=== PATIENT | male | born 1955 | race Caucasian/White ===

== ENCOUNTER 2018-05-26 09:02 | Observation (INO) | payer BC ==
--- NOTE | 2018-05-26 09:51 | ER Document Report ---
ED General - General Chief Complaint: Palpitations Stated Complaint: CHEST PAIN Time Seen by Provider: 05/26/18 09:34 TRAVEL OUTSIDE OF THE [place] IN LAST 30 DAYS: No - HPI Notes: Patient is a 63-year-old male that presents to the emergency department for chief complaint of nausea, palpitations and lightheadedness. Patient reports over the last 2 weeks he has had intermittent episodes of palpitations nausea and lightheadedness. Today he reports a few episodes with these symptoms. He states lying down improves his lightheadedness. Today he felt the palpitations beginning and began to get nauseous and laid down in his truck. He was unable to get out of his truck and ended up talking his horn so a neighbor found him and could called EMS. Patient states he has been seen by his primary care doctor for these symptoms and had a recent change to his blood pressure medications. He had an increase to his losartan and his metoprolol was changed to amlodipine. He reports no change in his symptoms since having the medications changed. He also reports yesterday he had results of a carotid ultrasound that were normal. He has had a stress test and cardiac echo in the last year that were also normal. He denies any history of dysrhythmia or cardiac disease in the past. He denied any syncopal event. Currently he states he is feeling mildly nauseated but the palpitations and lightheadedness have resolved. Past Medical History: Hypertension Past Surgical History: Rhinoplasty Social History: Denies drugs alcohol and tobacco Family History: Reviewed and noncontributory for presenting illness Allergies: Reviewed, see documented allergy list. REVIEW OF SYSTEMS: CONSTITUTIONAL : No fever No chills No diaphoresis No recent illness EENT: No vision changes No congestion No sore throat CARDIOVASCULAR: No chest pain palpitations RESPIRATORY: No shortness of breath No cough No difficulty breathing GASTROINTESTINAL: No abdominal pain nausea No vomiting No diarrhea GENITOURINARY: No dysuria No hematuria No difficulty urinating MUSCULOSKELETAL: No back pain No leg pain No arm pain SKIN: No rashes No lesions LYMPHATIC: No swollen, enlarged glands. NEUROLOGICAL: lightheadedness No headache No weakness No paresthesias PSYCHIATRIC: No anxiety No depression PHYSICAL EXAMINATION: Vital signs reviewed, nursing noted reviewed. GENERAL: Well-appearing, well-nourished and in no acute distress. HEAD: Atraumatic, normocephalic. EYES: Eyes appear normal, extraocular movements intact, sclera anicteric, conjunctiva are normal. ENT: nares patent, oropharynx clear without exudates. Moist mucous membranes. NECK: Normal range of motion, supple without lymphadenopathy LUNGS: Breath sounds clear to auscultation bilaterally and equal. No wheezes rales or rhonchi. HEART: Regular rate and rhythm without murmurs. +2/4 bilateral radial pulses ABDOMEN: Soft, nontender, normoactive bowel sounds. No rebound, guarding, or rigidity. No masses appreciated. EXTREMITIES: Nontender, good range of motion, no pitting or edema. NEUROLOGICAL: No focal neurological deficits. Moves all extremities spontaneously Motor and sensory grossly intact on exam. PSYCH: Normal mood, normal affect. SKIN: Warm, Dry, normal turgor, no rashes or lesions noted on exposed skin - Related Data Allergies/Adverse Reactions: No Known Allergies Allergy (Verified 05/26/18 09:08) Past Medical History - Social History Smoking Status: Never Smoker Family History: Reviewed & Not Pertinent Review of Systems - Review of Systems Notes: Dictated Physical Exam - Vital signs Vitals: Temp Pulse Resp BP Pulse Ox 97.6 F 90 18 159/89 H 96 05/26/18 09:27 05/26/18 09:27 05/26/18 09:27 05/26/18 09:27 05/26/18 09:27 - Notes Notes: Dictated Course - Re-evaluation Re-evalutation: 05/26/18 09:51 Vitals reviewed. Nursing notes reviewed. 05/26/18 12:02 Patient reevaluated after IV hydration he is orthostatic negative on blood pressure and heart rate from lying to sitting however when patient sits up he becomes very symptomatic and is unable to stand. He reports severe lightheadedness nausea and palpitations. He has had no telemetry events or dysrhythmia while in the emergency room. His workup is unremarkable including normal electrolytes and renal function. His troponin is negative. D-dimer is normal and PE not currently suspected. Chest x-ray showed no pneumothorax or other acute process. At this time he is still significantly symptomatic. I will continue hydration and admit him to the hospital for further monitoring. Case discussed with Dr. Whittaker who has accepted admission. Patient is in agreement with this plan and stable at time of admission. Laboratory 05/26/18 05/26/18 05/26/18 09:55 09:55 09:55 WBC 10.7 H RBC 4.64 Hgb 14.3 Hct 40.8 MCV 88 MCH 30.9 MCHC 35.2 RDW 13.1 Plt Count 204 Seg Neutrophils % 89.2 H Lymphocytes % 6.8 L Monocytes % 3.6 Eosinophils % 0.2 Basophils % 0.2 Absolute Neutrophils 9.5 H Absolute Lymphocytes 0.7 Absolute Monocytes 0.4 Absolute Eosinophils 0.0 Absolute Basophils 0.0 D-Dimer Sodium 141.3 Potassium 3.7 Chloride 101 Carbon Dioxide 27 Anion Gap 13 BUN 17 Creatinine 0.92 Est GFR ( Amer) > 60 Est GFR (Non-Af Amer) > 60 Glucose 139 H Calcium 9.0 Total Bilirubin 0.8 Direct Bilirubin 0.2 Neonat Total Bilirubin Not Reportable Neonat Direct Bilirubin Not Reportable Neonat Indirect Bili Not Reportable AST 16 L ALT 17 L Alkaline Phosphatase 49 Troponin I < 0.012 Total Protein 6.8 Albumin 4.1 05/26/18 09:55 WBC RBC Hgb Hct MCV MCH MCHC RDW Plt Count Seg Neutrophils % Lymphocytes % Monocytes % Eosinophils % Basophils % Absolute Neutrophils Absolute Lymphocytes Absolute Monocytes Absolute Eosinophils Absolute Basophils D-Dimer < 0.27 Sodium Potassium Chloride Carbon Dioxide Anion Gap BUN Creatinine Est GFR ( Amer) Est GFR (Non-Af Amer) Glucose Calcium Total Bilirubin Direct Bilirubin Neonat Total Bilirubin Neonat Direct Bilirubin Neonat Indirect Bili AST ALT Alkaline Phosphatase Troponin I Total Protein Albumin Chest X-Ray 05/26/18 09:46 IMPRESSION: NO ACUTE RADIOGRAPHIC FINDING IN THE CHEST. - Vital Signs Vital signs: Temp Pulse Resp BP Pulse Ox 97.6 F 94 20 138/78 H 97 05/26/18 09:27 05/26/18 10:53 05/26/18 10:48 05/26/18 10:53 05/26/18 10:48 - Laboratory Result Diagrams: 05/26/18 09:55 05/26/18 09:55 Laboratory results interpreted by me: 05/26/18 05/26/18 09:55 09:55 WBC 10.7 H Seg Neutrophils % 89.2 H Lymphocytes % 6.8 L Absolute Neutrophils 9.5 H Glucose 139 H AST 16 L ALT 17 L Discharge - Discharge Clinical Impression: Near syncope, Palpitations Vomiting Qualifiers: Vomiting type: unspecified Vomiting Intractability: non-intractable Nausea presence: with nausea Qualified Code(s): R11.2 - Nausea with vomiting, unspecified Condition: Stable Disposition: ADMITTED OBSERVATION Admitting Provider: Hospitalist Unit Admitted: Telemetry
[2018-05-26 10:07] LABS: ABSOLUTE LYMPHOCYTES (AUTO) 0.7 10^3/uL (0.5-4.7); ABSOLUTE MONOCYTES (AUTO) 0.4 10^3/uL (0.1-1.4); ABSOLUTE NEUT (AUTO) 9.5 10^3/uL (1.7-8.2); BASOPHILS % (AUTO) 0.2 % (0-2); EOSINOPHILS % (AUTO) 0.2 % (0-6); HEMATOCRIT 40.8 % (37.9-51.0); HEMOGLOBIN 14.3 g/dL (13.5-17.0); LYMPHOCYTES % (AUTO) 6.8 % (13-45); MEAN CORPUSCULAR HEMOGLOBIN 30.9 pg (27.0-33.4); MEAN CORPUSCULAR HGB CONC 35.2 g/dL (32.0-36.0); MEAN CORPUSCULAR VOLUME 88 fl (80-97); MONOCYTES % (AUTO) 3.6 % (3-13); PLATELET COUNT 204 10^3/uL (150-450); RED BLOOD COUNT 4.64 10^6/uL (4.35-5.55); RED CELL DISTRIBUTION WIDTH 13.1 % (11.5-14.0); SEGMENTED NEUTROPHILS % (AUTO) 89.2 % (42-78); TOTAL CELLS COUNTED % (AUTO) 100 %; WHITE BLOOD COUNT 10.7 10^3/uL (4.0-10.5)
[2018-05-26 10:31] LABS: ALANINE AMINOTRANSFERASE 17 U/L (21-72); ALBUMIN 4.1 g/dL (3.5-5.0); ALKALINE PHOSPHATASE 49 U/L (38-126); ANION GAP 13 (5-19); ASPARTATE AMINO TRANSFERASE 16 U/L (17-59); BILIRUBIN,DIRECT 0.2 mg/dL (0.0-0.4); BILIRUBIN,TOTAL 0.8 mg/dL (0.2-1.3); BLOOD UREA NITROGEN 17 mg/dL (7-20); CARBON DIOXIDE 27 mmol/L (22-30); CHLORIDE 101 mmol/L (98-107); GLUCOSE 139 mg/dL (75-110); POTASSIUM 3.7 mmol/L (3.6-5.0); SODIUM 141.3 mmol/L (137-145); TOTAL PROTEIN 6.8 g/dL (6.3-8.2)
[2018-05-26] MEDS ORDERED: PANTOPRAZOLE SODIUM 40 MG VIAL IV ONE (10:33)
--- NOTE | 2018-05-26 11:04 | RADIOLOGY REPORT (SQ) ---
EXAM DESCRIPTION: CHEST SINGLE VIEW COMPLETED DATE/TIME: 05/26/2018 10:29 am REASON FOR STUDY: chest pain COMPARISON: None. EXAM PARAMETERS: NUMBER OF VIEWS: One view. TECHNIQUE: Single frontal radiographic view of the chest acquired. RADIATION DOSE: NA LIMITATIONS: None. FINDINGS: LUNGS AND PLEURA: No opacities, masses or pneumothorax. No pleural effusion. MEDIASTINUM AND HILAR STRUCTURES: No masses. Contour normal. HEART AND VASCULAR STRUCTURES: Heart normal in size. Normal vasculature. BONES: No acute findings. HARDWARE: None in the chest. OTHER: No other significant finding. IMPRESSION: NO ACUTE RADIOGRAPHIC FINDING IN THE CHEST. TECHNICAL DOCUMENTATION: JOB ID: [id number] [employer]- All Rights Reserved Reading location - IP/workstation name: [facility]END[email or web address]
[2018-05-26] MEDS ORDERED: ONDANSETRON HCL INJ/PF 4 MG/2 ML SDV IV PRN ×2 (12:44→15:30)
[2018-05-26] MEDS: RINGERS SOLUTION,LACTATED 1,000 ML IV PRN ×2 (13:55→22:49)
--- NOTE | 2018-05-26 16:26 | PDOC H&P ---
History of Present Illness Admission Date/PCP: 05/26/18 12:16 Patient complains of: Dizziness and palpitations History of Present Illness: DAVE BRENNAN is a 63 year old male who presents to the emergency room due to acute onset of dizziness lightheadedness and palpitations associated with nausea and vomiting started earlier today at work. Patient went out to his car to sit in his seat and laid down which normally relieves his symptoms but after 15 minutes he did not improve and he was so weak that he could not get up so he had to honk the whole and have 1 of his coworkers to come help him out. 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 He said the firefighters checked his pressure was elevated with systolic pressure at 199. He has history of hypertension and takes losartan and metoprolol which was switch earlier this week to amlodipine by his primary care physician due to recurrent similar symptoms which started originally last week. Had carotid ultrasound done outpatient which was reportedly negative. Currently he is hemodynamically stable with normal vital signs and he is laying in bed comfortable. Past Medical History Cardiac Medical History: Reports: Hypertension Social History Smoking Status: Never Smoker Family History Family History: Malignancy Parental Family History Reviewed: Yes Children Family History Reviewed: Yes Sibling(s) Family History Reviewed.: Yes Medication/Allergy Home Medications: Ibuprofen [Motrin 800 mg Tablet] 800 mg PO Q8HP PRN 05/26/18 Losartan Potassium [Cozaar 100 mg Tablet] 100 mg PO DAILY 05/26/18 Metoprolol Succinate [Toprol Xl 50 mg Tab.sr] 50 mg PO DAILY 05/26/18 Omeprazole 40 mg PO ACBRKFST 05/26/18 Allergies/Adverse Reactions: No Known Allergies Allergy (Verified 05/26/18 09:08) Review of Systems All systems: reviewed and no additional remarkable complaints except as stated Physical Exam Vital Signs: Temp Pulse Resp BP Pulse Ox 97.6 F 94 20 135/78 H 96 05/26/18 09:27 05/26/18 10:53 05/26/18 15:01 05/26/18 15:00 05/26/18 15:01 General appearance: PRESENT: no acute distress, cooperative Head exam: PRESENT: atraumatic, normocephalic Eye exam: PRESENT: EOMI, PERRLA. ABSENT: conjunctival injection Ear exam: ABSENT: bleeding, drainage Mouth exam: PRESENT: neck supple, tongue midline Neck exam: ABSENT: meningismus, tenderness, tracheostomy Respiratory exam: PRESENT: accessory muscle use, clear to auscultation lisa Cardiovascular exam: PRESENT: RRR. ABSENT: diastolic murmur, systolic murmur Pulses: PRESENT: normal radial pulses GI/Abdominal exam: PRESENT: normal bowel sounds, soft. ABSENT: ascites, distended, tenderness Rectal exam: PRESENT: deferred Extremities exam: ABSENT: pedal edema Musculoskeletal exam: PRESENT: normal inspection. ABSENT: deformity, tenderness Neurological exam: PRESENT: alert, altered, awake, oriented to person, oriented to place, oriented to time, oriented to situation Psychiatric exam: PRESENT: agitated, anxious Skin exam: PRESENT: dry, normal color. ABSENT: abrasion, cyanosis, mottled Results Laboratory Results: 05/26/18 13:45 Troponin I < 0.012 Impressions: Chest X-Ray 05/26/18 09:46 IMPRESSION: NO ACUTE RADIOGRAPHIC FINDING IN THE CHEST. Assessment & Plan - Diagnosis (1) Near syncope Is this a current diagnosis for this admission?: Yes Plan: Admit patient for observation Continue telemetry monitoring Consult cardiology and check echocardiogram Check serial troponins and serial EKGs Consult physical therapy and check orthostatic vital signs Carotid ultrasound was done outpatient last week and was negative (2) Palpitations Is this a current diagnosis for this admission?: Yes Plan: Check TSH, echocardiogram, telemetry (3) Hypertension Is this a current diagnosis for this admission?: Yes Plan: Continue amlodipine and losartan Monitor blood pressure (4) Vomiting Qualifiers: Vomiting type: unspecified Vomiting Intractability: non-intractable Nausea presence: with nausea Qualified Code(s): R11.2 - Nausea with vomiting, unspecified Is this a current diagnosis for this admission?: Yes Plan: Zofran as needed
[2018-05-26] MEDS ORDERED: ACETAMINOPHEN 325 MG TABLET PO PRN (20:54)
[2018-05-26] MEDS ORDERED: MAG HYDROX/AL HYDROX/SIMETH SUSP 30 ML UDCUP PO PRN (20:55)
[2018-05-27] MEDS ORDERED: LANSOPRAZOLE 30 MG TAB.RAP.DR PO SCH (06:00)
[2018-05-27 06:47] LABS: HEMATOCRIT 38.9 % (37.9-51.0); HEMOGLOBIN 13.5 g/dL (13.5-17.0); MEAN CORPUSCULAR HEMOGLOBIN 30.8 pg (27.0-33.4); MEAN CORPUSCULAR HGB CONC 34.8 g/dL (32.0-36.0); MEAN CORPUSCULAR VOLUME 88 fl (80-97); PLATELET COUNT 203 10^3/uL (150-450); RED CELL DISTRIBUTION WIDTH 13.3 % (11.5-14.0); WHITE BLOOD COUNT 5.1 10^3/uL (4.0-10.5)
[2018-05-27 07:07] LABS: ANION GAP 9 (5-19); BLOOD UREA NITROGEN 19 mg/dL (7-20); CARBON DIOXIDE 32 mmol/L (22-30); CHLORIDE 102 mmol/L (98-107); GLUCOSE 101 mg/dL (75-110); POTASSIUM 4.3 mmol/L (3.6-5.0)
[2018-05-27] MEDS ORDERED: (PENDING PHARMACY ID) (Losartan Potassium [Losartan Potassium] 100 MG) PO SCH (10:00)
[2018-05-27] MEDS ORDERED: METOPROLOL SUCCINATE 50 MG TAB.SR.24H PO SCH (10:00)
[2018-05-27] MEDS ORDERED: LOSARTAN POTASSIUM 50 MG TABLET PO SCH (10:00)
[2018-05-27] MEDS ORDERED: AMLODIPINE BESYLATE 5 MG TABLET PO SCH (10:00)
--- NOTE | 2018-05-27 10:36 | PDOC CONSULTATION ---
Consultation Consult Date: 05/27/18 Attending physician:: ANN MARINO Consult reason:: Near syncope and palpitations History of Present Illness Admission Date/PCP: 05/26/18 12:16 Patient complains of: Near syncope and palpitations History of Present Illness: DAVE BRENNAN is a 63 year old male who presents to the emergency room due to acute onset of dizziness lightheadedness and palpitations associated with nausea and vomiting started earlier today at work. Patient went out to his car to sit in his seat and laid down which normally relieves his symptoms but after 15 minutes he did not improve and he was so weak that he could not get up so he had to honk the whole and have 1 of his coworkers to come help him out. 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 He said the firefighters checked his pressure was elevated with systolic pressure at 199. He has history of hypertension and takes losartan and metoprolol which was switch earlier this week to amlodipine by his primary care physician due to recurrent similar symptoms which started originally last week. Had carotid ultrasound done outpatient which was reportedly negative. Currently he is hemodynamically stable with normal vital signs and he is laying in bed comfortable. Patient claims that he had a full cardiac evaluation a year ago which included a stress test and echocardiogram. This he told was negative and the auger operator in [place] did not want to see him as his evaluations came back within normal limits. Patient does have problems with sleep that he wakes up multiple times. He claims he is not stressed out. Patient's does admit that he is noticed at times especially when tired. Past Medical History Cardiac Medical History: Reports: Hypertension GI Medical History: Reports: Gastroesophageal Reflux Disease Social History Information Source: Patient Smoking Status: Never Smoker Drugs: None - Advance Directive Resuscitation Status: Full Code Family History Family History: Hypertension, Malignancy Parental Family History Reviewed: Yes Children Family History Reviewed: Yes Sibling(s) Family History Reviewed.: Yes Medication/Allergy Home Medications: Amlodipine Besylate [Norvasc 5 mg Tablet] 5 mg PO DAILY 05/26/18 Ibuprofen [Motrin 800 mg Tablet] 800 mg PO Q8HP PRN 05/26/18 Losartan Potassium [Cozaar 100 mg Tablet] 100 mg PO DAILY 05/26/18 Omeprazole 40 mg PO ACBRKFST 05/26/18 Allergies/Adverse Reactions: No Known Allergies Allergy (Verified 05/26/18 09:08) Review of Systems Review of Systems: Please see history of present illness and past medical history as wall. Constitutional: No fever or chills reported. Head : No recent chronic headaches, recent head injury. Eyes: No recent eye pain, diplopia, redness, discharge, acute visual changes. Ears: No recent chronic ear pain, acute hearing loss, ear discharge. Oral cavity: No recent ulcerations, bleeding, oral cavity discomfort. Neck: No recent acute neck pain reported. Hematologic: No recent easy bruising or bleeding. Lymphatic: No recent lymph node enlargement reported. Cardiovascular system review: See history of present illness. Respiratory system review: No hemoptysis or blood clots in the lungs reported. Mild Shortness of breath on exertion Gastrointestinal system review: Negative for any recent acute hematemesis, melena. Genitourinary system review: No recent acute or chronic hematuria, flank pain, UTI etc. reported. Skin system review: Negative for any recent abnormal bruising, no rash, no pruritus reported. Neurologic: No prior history of strokes, mini strokes, seizure disorder. Psychologic: No history of major psychosis or major depression reported. Musculoskeletal: Minor aches and pains reported. No acute joint swelling reported. Endocrine: No recent polyuria, polydipsia, recent heat or cold intolerance. Physical Exam Vital Signs: Temp Pulse Resp BP Pulse Ox 98.1 F 84 16 135/73 H 100 05/27/18 08:55 05/27/18 08:55 05/27/18 08:55 05/27/18 08:55 05/27/18 08:55 Intake & Output 05/26/18 05/27/18 05/28/18 06:59 06:59 06:59 Intake Total 1523 Balance 1523 Weight 68 kg Exam: GENERAL: well-nourished and in no acute distress. Alert and oriented x3 HEAD: Atraumatic, normocephalic. EYES: [place], sclera anicteric, conjunctiva are normal. ENT: Moist mucous membranes. No oral ulcerations or bleeding gums noted. No obvious ear, nose or throat abnormalities noted. NECK: supple without lymphadenopathy. Trachea is central. No cervical or axillary lymphadenopathy noted. Carotids are 2+, JVD WNL LUNGS: Breath sounds clear bilaterally. No wheezes rales or rhonchi noted. No significant dullness noted on percussion. CHEST: Palpation of the chest wall shows no significant chest wall tenderness. 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 ABDOMEN: Soft, no significant tenderness appreciated, normoactive bowel sounds. No guarding, no rebound. No rigidity noted . No masses appreciated. EXTREMITIES: Pedal pulses are 1-2+, no calf tenderness noted. No clubbing or cyanosis. negative pedal edema noted NEUROLOGICAL: Focused neurological exam showed no significant neurologic deficit. Normal speech, no focal weakness appreciated. PSYCH: Normal mood, normal affect. Judgment and insight within normal limits. SKIN: No significant ecchymosis, skin is noted to be warm. MUSCULOSKELETAL EXAM: No significant acute joint swelling noted. Results Laboratory Results: 05/27/18 06:02 05/27/18 06:02 05/27/18 05/27/18 05/27/18 06:02 06:02 06:02 WBC 5.1 RBC 4.40 Hgb 13.5 Hct 38.9 MCV 88 MCH 30.8 MCHC 34.8 RDW 13.3 Plt Count 203 Sodium 143.0 Potassium 4.3 Chloride 102 Carbon Dioxide 32 H Anion Gap 9 BUN 19 Creatinine 1.04 Est GFR ( Amer) > 60 Est GFR (Non-Af Amer) > 60 Glucose 101 Calcium 9.0 Magnesium 2.1 TSH 0.84 05/26/18 05/26/18 05/27/18 13:45 19:00 00:50 Troponin I < 0.012 < 0.012 < 0.012 EKG Comments: Sinus rhythm with occasional APCs. No acute ST-T wave changes are noted. Impressions: Chest X-Ray 05/26/18 09:46 IMPRESSION: NO ACUTE RADIOGRAPHIC FINDING IN THE CHEST. Assessment & Plan - Diagnosis (1) Hypertension Qualifiers: Hypertension type: essential hypertension Qualified Code(s): I10 - Essential (primary) hypertension Is this a current diagnosis for this admission?: Yes (2) Near syncope Is this a current diagnosis for this admission?: Yes (3) Palpitations Is this a current diagnosis for this admission?: Yes (4) Vomiting Qualifiers: Vomiting type: unspecified Vomiting Intractability: non-intractable Nausea presence: with nausea Qualified Code(s): R11.2 - Nausea with vomiting, unspecified Is this a current diagnosis for this admission?: Yes - Notes Notes: Near syncope: Most likely neurocardiogenic presyncope. However could well be related to severe intermittent hypertension. May consider 24-hour catecholamine excretion, ultrasound of the kidneys. This can be scheduled however as an outpatient. Hypertension: Patient has very fluctuating blood pressure. There could be underlying anxiety panic disorder which could be exacerbating this but patient denies such symptoms. Will start patient on beta-blockers. Palpitations: Most likely sinus tachycardia or other arrhythmias. Patient may benefit from repeat event monitor. Will add beta-blockers. Vomiting: Exact etiology not clear but patient claims having had endoscopy within the last 1 year which were negative. Patient will benefit from close cardiology follow-up, possibly a sleep study scheduled because of multiple nocturnal awakening and also history of snoring. Sleep apnea is associated with difficult to control hypertension. 2D echo which was performed will be reviewed. - Time Time Spent: 30 to 50 Minutes - CODE STATUS was discussed, patient remains full code. Surrogate decision-maker patient's . Multiple medical problems were addressed. More than 50% of the time spent coordinating care, discussing management plans with involved caregivers. Management plans discussed with involved personnels. Medical decision making was of moderate to high complexity , patient's has multiple comorbidities. Further evaluation can be completed as an outpatient. Patient can follow-up with me. Will sign off. Please reconsult if needed. Medications reviewed and adjusted accordingly: Yes
--- NOTE | 2018-05-27 10:41 | EKG REPORT ---
SEVERITY:- NORMAL ECG - SINUS RHYTHM : Confirmed by: Leticia Talamantes 27-May-2018 10:40:28
--- NOTE | 2018-05-27 10:41 | EKG REPORT ---
SEVERITY:- ABNORMAL ECG - SINUS RHYTHM ATRIAL PREMATURE COMPLEX CONSIDER POSTERIOR INFARCT : Confirmed by: Leticia Talamantes 27-May-2018 10:40:35
[2018-05-27] MEDS: RINGERS SOLUTION,LACTATED 1,000 ML IV PRN (11:01)
--- NOTE | 2018-05-27 13:02 | XCELERA REPORT ---
[address] [address] Transthoracic Echocardiogram Report Name: DAVE BRENNAN Age: 63 yrs Gender: Male : 1955 Patient Status: Inpatient Patient Location: [address] [place] [address] Study Date: 05/27/2018 09:14 AM Height: 71 in Weight: 160 lb BSA: 1.9 m2 Procedure: A complete two-dimensional transthoracic echocardiogram was performed (2D, M-mode, spectral and color flow Doppler). The study was technically adequate with some images being suboptimal in quality. Reason For Study: syncope Ordering Physician: LETICIA GARLAND Performed By: Mauricio Kat Interpretation Summary The left ventricular ejection fraction is normal. There is normal left ventricular wall thickness. Doppler measurements suggest pseudonormalized left ventricular relaxation, which is associated with grade II/IV or mild to moderate diastolic dysfunction The left ventricle is grossly normal size. Wall motion cannot be accurately commented on, but no definite regional wall motion abnormalities noted. The right ventricle is grossly normal size. The right ventricular systolic function is normal. The left atrial size is normal. The right atrium is normal in size There is a trace to mild amount of mitral regurgitation There is no mitral valve stenosis. There is no aortic valve stenosis No aortic regurgitation is present. There is a trace or physiologic amount of tricuspid regurgitation There is mild pulmonary hypertension by echo Best estimated RVSP is approximately 40-45 mm/Hg. The aortic root is not well visualized but is probably normal size. There is no pericardial effusion. MMode/2D Measurements & Calculations RVDd: 3.7 cm LVIDd: 5.3 cm FS: 36.3 % Ao root diam: 3.6 cm IVSd: 0.81 cm LVIDs: 3.4 cm EDV(Teich): 136.1 ml Ao root area: 10.0 cm2 LVPWd: 0.84 cm ESV(Teich): 46.9 ml LA dimension: 3.2 cm EF(Teich): 65.6 % Doppler Measurements & Calculations MV E max emiliano: MV P1/2t max emiliano: Ao V2 max: LV V1 max P.7 cm/sec 61.9 cm/sec 112.2 cm/sec 4.8 mmHg MV A max emiliano: MV P1/2t: 72.8 msec Ao max P.0 mmHg LV V1 max: 70.6 cm/sec MVA(P1/2t): 3.0 cm2 109.1 cm/sec MV E/A: 0.89 MV dec slope: 248.9 cm/sec2 MV dec time: 0.18 sec PA V2 max: TR max emiliano: MV P1/2t-pr_phl: 92.3 cm/sec 301.3 cm/sec 72.8 msec PA max PG: TR max P.3 mmHg 3.4 mmHg Left Ventricle The left ventricle is grossly normal size. There is normal left ventricular wall thickness. The left ventricular ejection fraction is normal. Doppler measurements suggest pseudonormalized left ventricular relaxation, which is associated with grade II/IV or mild to moderate diastolic dysfunction. Wall motion cannot be accurately commented on, but no definite regional wall motion abnormalities noted. Right Ventricle The right ventricle is grossly normal size. There is normal right ventricular wall thickness. The right ventricular systolic function is normal. Atria The right atrium is normal in size. The left atrial size is normal. Interarterial septum not well visualized and not well dopplered. Cannot comment on ASD/PFO presence. Mitral Valve The mitral valve is grossly normal. There is no mitral valve stenosis. There is a trace to mild amount of mitral regurgitation. Aortic Valve The aortic valve is grossly normal. There is no aortic valve stenosis. No aortic regurgitation is present. Tricuspid Valve The tricuspid valve is not well visualized, but is grossly normal. There is no tricuspid stenosis. There is a trace or physiologic amount of tricuspid regurgitation. There is mild pulmonary hypertension by echo. Best estimated RVSP is approximately 40-45 mm/Hg. Pulmonic Valve The pulmonic valve is not well visualized. Great Vessels The aortic root is not well visualized but is probably normal size. The inferior vena cava appeared normal and decreased > 50% with respiration (RAP 5-10 mmHg). Effusions There is no pericardial effusion. : LETICIA GARLAND > Leticia Garland
--- NOTE | 2018-05-27 16:19 | PDOC DISCHARGE SUMMARY ---
General - Admit/Disc Date/PCP Admission Date/Primary Care Provider: 05/26/18 12:16 Discharge Date: 05/27/18 - Discharge Diagnosis (1) Near syncope Is this a current diagnosis for this admission?: Yes (2) Palpitations Is this a current diagnosis for this admission?: Yes (3) Hypertension Is this a current diagnosis for this admission?: Yes (4) Vomiting Is this a current diagnosis for this admission?: Yes - Additional Information Resuscitation Status: Full Code Discharge Diet: Cardiac Discharge Activity: Activity As Tolerated, No Driving Home Medications: Amlodipine Besylate [Norvasc 5 mg Tablet] 5 mg PO DAILY 05/26/18 Ibuprofen [Motrin 800 mg Tablet] 800 mg PO Q8HP PRN 05/26/18 Losartan Potassium [Cozaar 100 mg Tablet] 100 mg PO DAILY 05/26/18 Omeprazole 40 mg PO ACBRKFST 05/26/18 History of Present Illness History of Present Illness: DAVE BRENNAN is a 63 year old male who presents to the emergency room due to acute onset of dizziness lightheadedness and palpitations associated with nausea and vomiting started earlier today at work. Patient went out to his car to sit in his seat and laid down which normally relieves his symptoms but after 15 minutes he did not improve and he was so weak that he could not get up so he had to honk the whole and have 1 of his coworkers to come help him out. 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 He said the firefighters checked his pressure was elevated with systolic pressure at 199. He has history of hypertension and takes losartan and metoprolol which was switch earlier this week to amlodipine by his primary care physician due to recurrent similar symptoms which started originally last week. Had carotid ultrasound done outpatient which was reportedly negative. Currently he is hemodynamically stable with normal vital signs and he is laying in bed comfortable. Hospital Course Hospital Course: Patient was admitted for observation to telemetry. His orthostatics were negative. His troponins were negative. He continued to be sinus on telemetry. Echocardiogram was unremarkable. Was evaluated by cardiology. He is asymptomatic and stable for discharge. Should follow-up with cardiology outpatient for further workup if needed. Patient is aware of the plan and in agreement so is his who was present at bedside. Physical Exam Vital Signs: Temp Pulse Resp BP Pulse Ox 98.0 F 69 16 139/74 H 97 05/27/18 11:59 05/27/18 11:59 05/27/18 11:59 05/27/18 11:59 05/27/18 11:59 Intake & Output 05/26/18 05/27/18 05/28/18 06:59 06:59 06:59 Intake Total 1523 1000 Balance 1523 1000 Weight 149 lb 14.629 oz General appearance: PRESENT: no acute distress, cooperative Head exam: PRESENT: atraumatic, normocephalic Eye exam: PRESENT: EOMI, PERRLA. ABSENT: nystagmus Ear exam: ABSENT: bleeding, drainage Mouth exam: PRESENT: neck supple, tongue midline Neck exam: ABSENT: meningismus, tenderness, thyromegaly, tracheostomy Respiratory exam: PRESENT: clear to auscultation lisa. ABSENT: accessory muscle use Cardiovascular exam: PRESENT: RRR. ABSENT: diastolic murmur, systolic murmur Pulses: PRESENT: normal radial pulses GI/Abdominal exam: PRESENT: normal bowel sounds, soft. ABSENT: ascites, tenderness Rectal exam: PRESENT: deferred Neurological exam: PRESENT: alert, altered, awake, oriented to person, oriented to place, oriented to time, oriented to situation Skin exam: PRESENT: dry, normal color Results Laboratory Results: 05/27/18 06:02 05/27/18 06:02 05/27/18 05/27/18 05/27/18 06:02 06:02 06:02 WBC 5.1 RBC 4.40 Hgb 13.5 Hct 38.9 MCV 88 MCH 30.8 MCHC 34.8 RDW 13.3 Plt Count 203 Sodium 143.0 Potassium 4.3 Chloride 102 Carbon Dioxide 32 H Anion Gap 9 BUN 19 Creatinine 1.04 Est GFR ( Amer) > 60 Est GFR (Non-Af Amer) > 60 Glucose 101 Calcium 9.0 Magnesium 2.1 TSH 0.84 05/26/18 05/26/18 05/27/18 13:45 19:00 00:50 Troponin I < 0.012 < 0.012 < 0.012 Impressions: Chest X-Ray 05/26/18 09:46 IMPRESSION: NO ACUTE RADIOGRAPHIC FINDING IN THE CHEST. Qualifiers - * PATIENT BEING DISCHARGED WITH ANY OF THE FOLLOWING DIAGNOSIS: No
[2018-05-27 16:47] VITALS: BP 138/86
--- NOTE | 2018-05-27 16:58 | RADIOLOGY REPORT (SQ) ---
EXAM DESCRIPTION: CTA CHEST COMPLETED DATE/TIME: 05/27/2018 4:28 pm REASON FOR STUDY: pulm. htn COMPARISON: None. TECHNIQUE: CT scan of the chest performed using helical scanning technique with dynamic intravenous contrast injection. Images reviewed with lung, soft tissue and bone windows. Reconstructed coronal and sagittal MPR images reviewed. Additional 3 dimensional post-processing performed to develop Maximal Intensity Projection images (IA P). All images stored on PACS. All CT scanners at this facility use dose modulation, iterative reconstruction, and/or weight based d osing when appropriate to reduce radiation dose to as low as reasonably achievable (ALARA). [facility]: Dose Right [facility]: CareDose [facility]: Dose Right [facility]: Teradose 4D [facility]: [employer] CONTRAST TYPE AND DOSE: contrast/concentration: Isovue 350.00 mg/ml; Total Contrast Delivered: 68.0 ml; Total Saline Delivered: 80.0 ml Contrast bolus optimized for the pulmonary arteries. Not diagnostic for the aorta. RENAL FUNCTION: GFR > 60. RADIATION DOSE: CT Rad equipment meets quality standard of care and radiation dose reduction techniq ues were employed. CTDIvol: 14.3 - 33.1 mGy. DLP: 568 mGy-cm. . LIMITATIONS: None. FINDINGS: LUNGS AND PLEURA: No masses, infiltrates, or pneumothorax. No pleural effusions or pleura l calcifications. AORTA AND GREAT VESSELS: No aneurysm. Contrast bolus not optimized for the aorta. HEART: No pericardial effusion. No significant coronary artery calcifications. PULMONARY ARTERIES: No emboli visualized in the main pulmonary arteries or the segmental branches. HILAR AND MEDIASTINAL STRUCTURES: No identified masses or abnormal nodes. HARDWARE: None in the chest. UPPER ABDOMEN: No significant findings. Limited exam. THYROID AND OTHER SOFT TISSUES: No masses. No adenopathy. BONES: No acute or significant finding. 3D MIPS: Confirm above findings. OTHER: No other significant finding. IMPRESSION: NORMAL CTA OF THE CHEST. NO PULMONARY EMBOLI. COMMENT: Quality ID # [id number]: Final reports with documentation of one or more dose reduction techniques (e.g., Automated exposure control, adjustment of the mA and/or kV according to patient size, use of iterative reconstruction technique) TECHNICAL DOCUMENTATION: JOB ID: [id number] [employer]- All Rights Reserved Reading location - IP/workstation name: [email or web address]
== END 2018-05-27 18:08 | disposition home or self-care (01) ==
LOC: ER 09:02 → EH 12:16 → 5 16:58
PROVIDERS: ADMIT Hospitalist; ATTEND Hospitalist
DX: R00.2 Palpitations (principal); R55 Syncope and collapse; I10 Essential (primary) hypertension; R11.2 Nausea with vomiting, unspecified; R53.1 Weakness; K21.9 Gastro-esophageal reflux disease without esophagitis; R06.02 Shortness of breath; R42 Dizziness and giddiness; Z79.899 Other long term (current) drug therapy; Z82.49 Family history of ischemic heart disease and other diseases of the circulatory system
CPT/HCPCS: 93005 ×2; 99285; 96374; 36415 ×2; 83735; 84443; 85025; 85027; 80048; 80053; 84484 ×2; 85379; 93306; 71045; 71275; 93010 ×2; 97116; 97161; 97165; G0378 ×3; S0164; J3490 ×2; J7120 ×2

== ENCOUNTER → 2018-06-13 | Outpatient (CLI) | payer BC ==
--- NOTE | 2018-06-13 10:57 | RADIOLOGY REPORT (SQ) ---
EXAM DESCRIPTION: U/S RETROPERITON (RENAL/AORTA) COMPLETED DATE/TIME: 06/13/2018 10:43 am REASON FOR STUDY: HTN (I10), NAUSEA (R11.0), DIZZINESS (R42) I10 ESSENTIAL (PRIMARY) HYPERTENSION R 11.0 NAUSEA R42 DIZZINESS AND GIDDINESS COMPARISON: None. TECHNIQUE: Dynamic and static grayscale images acquired of the kidneys and bladder and recorded on P ACS. Additional selected color Doppler and spectral images recorded. LIMITATIONS: None. FINDINGS: RIGHT KIDNEY: The right kidney measures 10.4 cm in length, normal size. Normal size. Nor mal echogenicity. No solid or suspicious masses. Right extra-renal pelvis, normal anatomic No hydron ephrosis. No calcifications. LEFT KIDNEY: The left kidney measures 10.7 cm in length, normal size. Normal echogenicity. No solid or suspicious masses. No hydronephrosis. No calcifications. BLADDER: No masses. OTHER FINDINGS: Incidentally, gallstone. IMPRESSION: 1. NORMAL RENAL AND BLADDER ULTRASOUND. 2. Incidentally, gallstone. TECHNICAL DOCUMENTATION: JOB ID: [id number] [employer]- All Rights Reserved Reading location - IP/workstation name: [email or web address]
== END ==
LOC: RAD 09:22
PROVIDERS: ATTEND Registered Nurse
DX: R11.0 Nausea (principal); I10 Essential (primary) hypertension; R42 Dizziness and giddiness; K80.80 Other cholelithiasis without obstruction
CPT/HCPCS: 76770

== ENCOUNTER → 2018-06-29 | Outpatient (CLI) | payer BC ==
--- NOTE | 2018-06-29 09:42 | RADIOLOGY REPORT (SQ) ---
EXAM DESCRIPTION: U/S ABDOMEN LIMITED W/O DOP COMPLETED DATE/TIME: 06/29/2018 9:26 am REASON FOR STUDY: NAUSEA (R11.0) R11.0 NAUSEA COMPARISON: None. TECHNIQUE: Dynamic and static grayscale images acquired of the abdomen and recorded on PACS. Kristeno daniel selected color Doppler and spectral images recorded. LIMITATIONS: None. FINDINGS: PANCREAS: No masses. Visualized pancreatic duct normal caliber. LIVER: No masses. Echotexture normal. LIVER VASCULATURE: Normal directional flow of the main portal vein and hepatic veins. GALLBLADDER: Echodensity along the dependent wall of gallbladder consistent with gallstones. No thic kening of gallbladder wall. No pericholecystic fluid collection. ULTRASOUND-DETECTED RAMIREZ'S SIGN: Indeterminate per technologist. INTRAHEPATIC DUCTS AND COMMON DUCT: CBD and intrahepatic ducts normal caliber. No filling defects. INFERIOR VENA CAVA: Normal flow. AORTA: No aneurysm. RIGHT KIDNEY: Normal size. Normal echogenicity. No solid or suspicious masses. No hydronephrosis. No calcifications. PERITONEAL AND RIGHT PLEURAL SPACE: No ascites or effusions. OTHER: No other significant finding. IMPRESSION: Cholelithiasis. No wall thickening or pericholecystic fluid to suggest acute cholecysti tis. Per technologist, indeterminate Ramirez's sign, however. TECHNICAL DOCUMENTATION: JOB ID: [id number] [employer] All Rights Reserved Reading location - IP/workstation name: [email or web address]
== END ==
LOC: RAD 08:40
PROVIDERS: ATTEND Registered Nurse
DX: R11.0 Nausea (principal); K80.20 Calculus of gallbladder without cholecystitis without obstruction
CPT/HCPCS: 76705

== ENCOUNTER 2018-08-02 07:20 | Day surgery (SDC) | payer BC ==
[2018-08-02] MEDS ORDERED: LIDOCAINE 2% JELLY 5 ML TUBE ONE (07:27)
[2018-08-02] MEDS ORDERED: DIPHENHYDRAMINE HCL 50 MG/ML VIAL ONE (10:06)
[2018-08-02] MEDS ORDERED: ONDANSETRON HCL INJ/PF 4 MG/2 ML SDV ONE (10:06)
[2018-08-02] MEDS ORDERED: EPINEPHRINE INJ 1 MG/10 ML DISP.SYRIN ONE (10:07)
[2018-08-02] MEDS ORDERED: GLUCAGON,HUMAN RECOMB 1 MG INJ ONE (10:07)
[2018-08-02] MEDS ORDERED: NALOXONE HCL INJ/PF 0.4 MG/1 ML SDV ONE (10:07)
[2018-08-02] MEDS ORDERED: FLUMAZENIL INJ 0.5 MG/5 ML VIAL ONE (10:07)
[2018-08-02] MEDS ORDERED: MIDAZOLAM 2 MG/2 ML INJ ONE (10:07)
[2018-08-02] MEDS: FENTANYL CITRATE INJ/PF 100 MCG/2 ML AMPUL ONE ×2 (10:41→10:43)
--- NOTE | 2018-08-02 11:22 | Operative Report ---
Nonrecallable Operative Report DATE OF SURGERY: 08/02/18 PREOPERATIVE DIAGNOSIS: gerd POSTOPERATIVE DIAGNOSIS: gerd, hiatal hernia OPERATION: gastroesophagoduodenoscopy with esophageal biopsy and leyva placement SURGEON: DESI ANDREWS ANESTHESIA: Moderate Sedation TISSUE REMOVED OR ALTERED: distal esophageal biopsy x2 COMPLICATIONS: none ESTIMATED BLOOD LOSS: none INTRAOPERATIVE FINDINGS: After appropriate timeout and site verification the patient was placed in a left lateral decubitus position. The Olympus gastr oscope was placed into the posterior pharynx and easily passed into the proximal esophagus and easily passed into the stomach. Scope was manipulated past the pylorus into the duodenum and then slowly withdrawn. Antrum and pylorus. No gastric mucosal abnormalities. J maneuver was performed to visualize the GE junction appeared to be a moderate to large hiatal hernia. Scope was then slowly withdrawn into the esophagus and the Z line was identified at 40 cm. Multiple biopsies were obtained of the distal esophagus to rule out Arshad's esophagus. This point the gastroscope was removed. Leyva deployment device was then inserted into the posterior pharynx and moved to a distance of approximately 34 cm from the teeth. This corresponds to approximately 6 cm above the Z line. The Leyva capsule was then deployed. The introduction device was removed and the Olympus gastroscope was then replaced back into the posterior pharynx. The Leyva capsule was then identified attached to the side of the esophagus at the 36 cm candie. The scope was then removed which completed the procedure. Patient returned to recovery room in stable condition.
[2018-08-02 12:48] VITALS: BP 138/82
== END 2018-08-02 12:00 | disposition home or self-care (01) ==
LOC: END 07:20
PROVIDERS: ATTEND Surgery
DX: K21.9 Gastro-esophageal reflux disease without esophagitis (principal); K44.9 Diaphragmatic hernia without obstruction or gangrene; I48.91 Unspecified atrial fibrillation; Z79.01 Long term (current) use of anticoagulants; Z79.899 Other long term (current) drug therapy
CPT/HCPCS: 43239; 91010; 91035; 88305 ×2; J2250; J3010; J0171; J1200; J1610; J2310; J2405; J3490

== ENCOUNTER 2018-09-08 05:23 | Inpatient (IN) | payer BC ==
[2018-09-02 10:01] LABS: HEMATOCRIT 38.6 % (37.9-51.0); HEMOGLOBIN 13.4 g/dL (13.5-17.0); MEAN CORPUSCULAR HGB CONC 34.7 g/dL (32.0-36.0); MEAN CORPUSCULAR VOLUME 89 fl (80-97); PLATELET COUNT 260 10^3/uL (150-450); RED BLOOD COUNT 4.32 10^6/uL (4.35-5.55); RED CELL DISTRIBUTION WIDTH 13.1 % (11.5-14.0); WHITE BLOOD COUNT 4.9 10^3/uL (4.0-10.5)
[2018-09-02 10:25] LABS: ANION GAP 7 (5-19); BLOOD UREA NITROGEN 14 mg/dL (7-20); CALCIUM 9.3 mg/dL (8.4-10.2); CARBON DIOXIDE 33 mmol/L (22-30); CHLORIDE 104 mmol/L (98-107); GLUCOSE 102 mg/dL (75-110); POTASSIUM 5.1 mmol/L (3.6-5.0); SODIUM 143.7 mmol/L (137-145)
--- NOTE | 2018-09-02 13:17 | EKG REPORT ---
SEVERITY:- ABNORMAL ECG - SINUS BRADYCARDIA LEFT VENTRICULAR HYPERTROPHY : Confirmed by: Lev Nixon MD 02-Sep-2018 13:16:09
[~2018-09-08 05:23] MED LIST: CEFAZOLIN 1 GM/D5W RTU 1 GM/50 ML RTUPB IV PRN; LACTATED RINGERS 1000 ML IV PRN; LIDOCAINE 0.5% INJ-PF (5 MG/ML) 50 ML SDV SUBCUT PRN; METRONIDAZOLE 500 MG/NS RTU 500 MG/100 ML RTUPB IV PRN
[2018-09-08 06:18] LABS: INTERNATIONAL RATION (INR) 0.96; PROTHROMBIN TIME 13.3 SEC (11.4-15.4)
[2018-09-08 06:19] LABS: PARTIAL THROMBOPLASTIN TIME 30.1 SEC (23.5-35.8)
[2018-09-08] MEDS ORDERED: BUPIVACAINE HCL 0.5%-EPI 1:200000 INJ/PF 30 ML VIAL ONE (06:23)
[2018-09-08] MEDS ORDERED: METRONIDAZOLE 500 MG/NS RTU 500 MG/100 ML RTUPB IV ONE (06:36)
[2018-09-08] MEDS ORDERED: CEFAZOLIN 1 GM/D5W RTU 1 GM/50 ML RTUPB IV ONE (06:37)
[2018-09-08] MEDS ORDERED: ONDANSETRON HCL INJ/PF 4 MG/2 ML SDV ONE ×2 (07:02→17:19)
[2018-09-08] MEDS ORDERED: PROPOFOL INJ 200 MG/20 ML VIAL IV ONE (07:02)
[2018-09-08] MEDS ORDERED: DEXAMETHASONE SOD PHOSPHATE INJ 4 MG/1 ML VIAL ONE (07:02)
[2018-09-08] MEDS ORDERED: EPHEDRINE SULFATE INJ 50 MG/1 ML AMPULE ONE (07:02)
[2018-09-08] MEDS ORDERED: PROMETHAZINE HCL INJ 25 MG/1 ML VIAL ONE (07:02)
[2018-09-08] MEDS ORDERED: ACETAMINOPHEN 1,000 MG/100 ML RTUPB IV ONE (07:02)
[2018-09-08] MEDS ORDERED: FENTANYL CITRATE INJ/PF 100 MCG/2 ML AMPUL ONE (07:02)
[2018-09-08] MEDS ORDERED: MIDAZOLAM 2 MG/2 ML INJ ONE (07:02)
[2018-09-08] MEDS ORDERED: HYDROMORPHONE HCL INJ/PF 2 MG/ML AMPULE ONE (07:35)
[2018-09-08] MEDS ORDERED: DIPHENHYDRAMINE HCL 50 MG/ML VIAL IV PRN (07:49)
[2018-09-08] MEDS ORDERED: FENTANYL CITRATE INJ/PF 100 MCG/2 ML AMPUL IV PRN ×3 (07:49)
[2018-09-08] MEDS ORDERED: PROMETHAZINE HCL INJ 25 MG/1 ML VIAL IV PRN ×2 (07:49)
[2018-09-08] MEDS ORDERED: MORPHINE SULFATE 10 MG/ML INJ IV PRN (07:49)
[2018-09-08] MEDS ORDERED: MEPERIDINE HCL/PF INJ 25 MG/1 ML DISP.SYRIN IV PRN (07:49)
[2018-09-08] MEDS ORDERED: ROCURONIUM BROMIDE INJ 50 MG/5 ML VIAL IV ONE (09:22)
[2018-09-08] MEDS ORDERED: SUCCINYLCHOLINE CHLORIDE INJ 200 MG/10 ML VIAL ONE (09:22)
--- NOTE | 2018-09-08 09:44 | Operative Report ---
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
[2018-09-08] MEDS: FENTANYL CITRATE INJ/PF 100 MCG/2 ML AMPUL ONE ×4 (10:10→10:25)
--- NOTE | 2018-09-08 10:43 | OPERATIVE REPORT E ---
Operative Report NAME: DAVE BRENNAN : 1955 AGE: 63Y DATE OF SURGERY: 09/08/2018 ROOM: PREOPERATIVE DIAGNOSIS: Gastroesophageal reflux disease and cholelithiasis. POSTOPERATIVE DIAGNOSIS: Gastroesophageal reflux disease and cholelithiasis. OPERATIVE PROCEDURE: Laparoscopic Diane fundoplication and cholecystectomy. SURGEON: DESI ANDREWS M.D. ACCELERATOR TECHNICIAN SURGEON: EDILSON Gore, who was present during the entire operation for assistance in wound retraction and wound closure. ANESTHESIA: General. PROCEDURE: The patient was brought to the operating room awake and alert in stable condition, placed on the operating table in supine position, induced under general anesthesia, and intubated. The abdomen was prepped and draped in the usual sterile manner for the procedure. A Veress needle was placed into the umbilicus and the abdomen was insufflated with 6 L of CO2 gas. A supraumbilical 10 mm incision was made with a 12 blade and a 10 mm port placed in the abdominal cavity. Intra-abdominal visualization revealed no evidence of a Veress needle or trocar injury. Two epigastric ports were placed under direct vision, a 5 and a 10 in the subcostal area. A right-sided 5 mm port was placed under direct vision and a left-sided 5 mm port, all under direct vision. The stomach was identified. Through the right-sided abdominal port we placed a liver retractor to retract the left lobe of the liver anteriorly. The stomach was identified. The greater curvature was identified. A point was picked along the greater curvature about senior living between the angle of His and the incisura where we began our dissection. We divided the short gastric vessels from that point all the way to the angle of His to identify the left slip of the kelly. Once this was done we gained access to the gastrohepatic omentum with the LigaSure device and identified the right slip of the kelly. The esophagus was then mobilized out of its bed up into the posterior mediastinum approximately 6 cm. We then returned the distal esophagus to the abdominal cavity for a distance of about 6 cm. The patient had a moderate to large hiatal hernia defect, which was closed posteriorly around the esophagus with a [id number]-eoyjo placed 0 Surgidac suture. Once it was completely closed we sounded it with a 58-Liberian bougie dilator which easily passed into the stomach. We then passed the fundus posteriorly around the esophagus and fixed it to itself anteriorly and the esophagus with 3 separate 0 Surgidac sutures for a distance of approximately 2 cm. This created a floppy Diane wrap. Once this was accomplished we checked for hemostasis and it was intact. We turned attention to the right upper quadrant. The gallbladder was identified. It was placed on traction. The hepatoduodenal ligament was dissected, isolating the cystic duct and cystic artery. Both of these structures were doubly ligated on the stay side and one on the specimen side, and they were divided. The gallbladder was dissected out of the liver bed with Bovie cautery, placed in an Endobag, and removed through the left upper quadrant 10 mm port site. Hemostasis of the liver bed was obtained with Bovie cautery. After good hemostasis we irrigated the abdominal cavity with normal saline and the right upper quadrant suctioned dry, checked for hemostasis and it was intact, and then removed the ports. We then closed the fascial defects with 0 Vicryl at the 10 mm port sites and then closed all skin incisions with intracuticular 4-0 Monocryl. Steri-Strips completed the procedure. Estimated blood loss was less than 10 mL. Sponge and needle counts were correct x2. The patient was awakened in the operating room, extubated, and transferred to recovery in stable condition, no complications. DICTATING PHYSICIAN: DESI ANDREWS M.D. [id number] JAIDENY#: [id number] ID: [id number] JOB#: [id number] ACCT: [id number] cc:DESI ANDREWS M.D. >
[2018-09-08] MEDS: MORPHINE SULFATE 10 MG/ML INJ IV PRN (14:43)
--- NOTE | 2018-09-08 22:16 | EKG REPORT ---
SEVERITY:- NORMAL ECG - SINUS RHYTHM : Confirmed by: Leticia Talamantes 08-Sep-2018 22:16:23
[2018-09-09] MEDS: MORPHINE SULFATE 10 MG/ML INJ IV PRN ×2 (00:07→06:18)
[2018-09-09] MEDS ORDERED: HYDROMORPHONE HCL INJ/PF 2 MG/ML AMPULE IV PRN (00:46)
[2018-09-09] MEDS ORDERED: ONDANSETRON HCL INJ/PF 4 MG/2 ML SDV IV PRN (00:46)
[2018-09-09] MEDS: LANSOPRAZOLE 15 MG TAB.RAP.DR PO SCH (06:10)
--- NOTE | 2018-09-09 07:52 | PDOC PROGRESS REPORT ---
Subjective Progress Note for:: 09/09/18 Subjective:: c/o pain eipgastrium Reason For Visit: GALLBLADDER pod #1 lap steven and lap leonardo Physical Exam Vital Signs: Temp Pulse Resp BP Pulse Ox 98.7 F 69 16 166/83 H 98 09/08/18 19:17 09/09/18 07:00 09/08/18 19:17 09/08/18 19:17 09/09/18 04:53 Pulse Oximeter Continuous Start: 09/08/18 11:40 Freq: RTQ4 Status: Active Protocol: Document 09/09/18 04:53 NSM (Rec: 09/09/18 04:54 NSM [email or web address]) Pulse Oximetry Assessment Oxygen Saturation (92-100) 98 Oxygen Flow Rate (L/min) 1 Oxygen Delivery Method Nasal Cannula Fraction of Inspired Oxygen (FIO2) 24 Equipment Usage Equipment in Use Continuous SpO2 Machine # [id number] Intake & Output 09/08/18 09/09/18 09/10/18 06:59 06:59 06:59 Intake Total 100 3959 Output Total 243 Balance 100 3716 Weight 72.57 kg 72.8 kg General appearance: PRESENT: no acute distress Head exam: PRESENT: atraumatic Eye exam: PRESENT: conjunctiva pink Mouth exam: PRESENT: moist Neck exam: PRESENT: full ROM Respiratory exam: PRESENT: clear to auscultation lisa Cardiovascular exam: PRESENT: RRR Pulses: PRESENT: normal radial pulses, normal femoral pulses GI/Abdominal exam: PRESENT: soft Rectal exam: PRESENT: deferred Skin exam: PRESENT: dry Results Laboratory Results: 09/02/18 09:07 09/08/18 06:02 09/08/18 07:38 Blood Type A POSITIVE Antibody Screen NEGATIVE Assessment & Plan - Plan Summary Plan Summary: doing well post lap steven and leonardo some epigastric pain bernie liquids will advance diet to full liquids add toradol ant tylenol
[2018-09-09] MEDS ORDERED: KETOROLAC TROMETHAMINE INJ/PF 30 MG/1 ML SDV IV PRN (08:00)
[2018-09-09 09:07] LABS: HEMATOCRIT 39.5 % (37.9-51.0); HEMOGLOBIN 13.9 g/dL (13.5-17.0); MEAN CORPUSCULAR HEMOGLOBIN 31.2 pg (27.0-33.4); MEAN CORPUSCULAR HGB CONC 35.1 g/dL (32.0-36.0); MEAN CORPUSCULAR VOLUME 89 fl (80-97); PLATELET COUNT 227 10^3/uL (150-450); RED BLOOD COUNT 4.44 10^6/uL (4.35-5.55); RED CELL DISTRIBUTION WIDTH 12.8 % (11.5-14.0); WHITE BLOOD COUNT 11.6 10^3/uL (4.0-10.5)
[2018-09-09 09:27] LABS: ANION GAP 11 (5-19); BLOOD UREA NITROGEN 12 mg/dL (7-20); CALCIUM 9.4 mg/dL (8.4-10.2); CARBON DIOXIDE 31 mmol/L (22-30); CHLORIDE 98 mmol/L (98-107); GLUCOSE 120 mg/dL (75-110); POTASSIUM 3.8 mmol/L (3.6-5.0); SODIUM 139.8 mmol/L (137-145)
[2018-09-09] MEDS: METOPROLOL SUCCINATE 25 MG TAB.SR.24H PO SCH (09:36)
[2018-09-09] MEDS: ACETAMINOPHEN INJ/PF 1000 MG/100 ML SDV IV SCH ×3 (09:37→21:11)
[2018-09-09] MEDS: LOSARTAN POTASSIUM 50 MG TABLET PO SCH (09:37)
[2018-09-09] MEDS ORDERED: OMEPRAZOLE MAGNESIUM PO SCH (10:00)
[2018-09-10] MEDS: ACETAMINOPHEN INJ/PF 1000 MG/100 ML SDV IV SCH ×2 (04:23→08:31)
[2018-09-10] MEDS: LANSOPRAZOLE 15 MG TAB.RAP.DR PO SCH (06:19)
[2018-09-10] MEDS: LOSARTAN POTASSIUM 50 MG TABLET PO SCH (08:31)
[2018-09-10] MEDS: METOPROLOL SUCCINATE 25 MG TAB.SR.24H PO SCH (08:31)
[2018-09-10 09:45] VITALS: BP 150/94
--- NOTE | 2018-09-10 09:46 | Discharge Summary ---
Discharge Summary (SDC) - Discharge Final Diagnosis: gastroesophageal reflux, gallstones Date of Surgery: 09/08/18 Condition: Good Referrals: ROLLY FRIAS, TILE PICKER [Primary Care Provider] - Discharge Diet: Other (Comments) - soft Discharge Activity: Activity As Tolerated, Balance Activity w/Rest, No Lifting Over 10 Pounds, Walk Frequently Home Care Assistance: None Needed Report the Following to Your Physician Immediately: Shortness of Breath, Nausea, Vomiting, Increase in Pain, Fever over 101 Degrees
--- NOTE | 2018-09-10 10:18 | DISCHARGE SUMMARY E ---
Discharge Summary NAME: DAVE BRENNAN : 1955 AGE: 63Y ADMITTED: 09/08/2018 DISCHARGED: ADMISSION DIAGNOSES: 1. Gastroesophageal reflux disease. 2. Cholelithiasis. DISCHARGE DIAGNOSES: 1. Gastroesophageal reflux disease. 2. Cholelithiasis. OPERATIONS AND PROCEDURES: 1. Laparoscopic Diane fundoplication. 2. Cholecystectomy. REASON FOR HOSPITALIZATION/HOSPITAL COURSE: This is a 63-year-old male who was admitted for an elective laparoscopic Diane fundoplication and cholecystectomy. The patient had a history of gastroesophageal reflux disease and cholelithiasis. He had an extensive workup prior to surgery and was admitted on the day of surgery for the elective procedure. He tolerated the procedure well and on postoperative day 1 was tolerating a clear liquid diet, which was advanced to a full liquid diet on the first postoperative day. By the second postoperative day he was tolerating the full liquid diet well, having no significant incisional pain. His vital signs were stable. He was up ambulating and ready for discharge home. DISCHARGE INSTRUCTIONS: 1. A soft diet. 2. Activity as tolerated. 3. May drive in 2 days. 4. No lifting of weight greater than 10 pounds for the next 4 to 6 weeks. 5. He will follow up 1 week after discharge for wound check and followup. DISCHARGE MEDICATIONS: 1. Percocet 10/325 mg 1 p.o. q.6 p.r.n. pain. He will be given 20 of these. 2. Colace 100 mg capsules, #100, 1 p.o. b.i.d. 3. He will resume his other home medicines. DISABILITY: Four weeks. DICTATING PHYSICIAN: DESI ANDREWS M.D. [id number] PHY#: [id number] ID: [id number] JOB#: [id number] ACCT: [id number] cc:DESI ANDREWS M.D. >
--- NOTE | 2018-09-15 12:48 | DISCHARGE SUMMARY E ---
Discharge Summary NAME: DAVE BRENNAN : 1955 AGE: 63Y ADMITTED: 09/08/2018 DISCHARGED: 09/10/2018 ADDENDUM FINAL PATHOLOGY: Revealed chronic cholecystitis and cholelithiasis, and I agree with that pathologic determination. DICTATING PHYSICIAN: DESI ANDREWS M.D. [id number] PHY#: [id number] ID: [id number] JOB#: [id number] ACCT: [id number] cc:DESI ANDREWS M.D. >
== END 2018-09-10 10:00 | disposition home or self-care (01) | DRG 327 ==
LOC: OROUT 05:23 → 4S 11:00
PROVIDERS: ADMIT Surgery; ATTEND Surgery
PROC: 0FT44ZZ Resection of Gallbladder, Percutaneous Endoscopic Approach (ICD-10-PCS; 2018-09-08)
PROC: 0DV44ZZ Restriction of Esophagogastric Junction, Percutaneous Endoscopic Approach (ICD-10-PCS; principal; 2018-09-08 07:30)
PROC: 0BQT4ZZ Repair Diaphragm, Percutaneous Endoscopic Approach (ICD-10-PCS; 2018-09-08 07:30)
DX: K21.9 Gastro-esophageal reflux disease without esophagitis (principal); K80.10 Calculus of gallbladder with chronic cholecystitis without obstruction; K44.9 Diaphragmatic hernia without obstruction or gangrene; I48.91 Unspecified atrial fibrillation; Z79.01 Long term (current) use of anticoagulants
CPT/HCPCS: 36415; 790; 80048; 84132; 85027; 85610; 85730; 86850; 86900; 86901; 88304; 93005; 93010; 94762; J0131; J0330; J0690; J1100; J1170; J1885; J2250; J2270; J2405; J2550; J2704; J3010; J3490